=== PATIENT | female | born 1950 | race American Indian/Alaskan Native ===

== ENCOUNTER 2018-06-16 07:07 | Day surgery (SDC) | payer MEDICARE ==
[2018-06-14 09:44] VITALS: BMI 29.2
[2018-06-16] MEDS ORDERED: Propofol 10 mg/ml Inj (20 ML) ONE ×2 (08:55→09:16)
[2018-06-16] MEDS ORDERED: Etomidate 20 mg/10ml Inj IV ONE ×2 (08:56→09:10)
[2018-06-16] MEDS ORDERED: ePHEDrine 50 mg/ml Inj ONE (08:59)
[2018-06-16 10:01] VITALS: TEMP 97.9
[2018-06-16 15:05] VITALS: PULSE 68; O2SAT 98
[2018-06-16 15:13] VITALS: BP 122/61; RESP 15
== END 2018-06-16 11:34 | disposition home or self-care (01) ==
LOC: C.ENDO 07:07
PROVIDERS: ATTEND Internal Medicine Gastroenterology
DX: Z09 Encounter for follow-up examination after completed treatment for conditions other than malignant neoplasm (principal); Z86.010 Personal history of colon polyps; D12.0 Benign neoplasm of cecum; D12.4 Benign neoplasm of descending colon; K63.5 Polyp of colon; K57.90 Diverticulosis of intestine, part unspecified, without perforation or abscess without bleeding; I10 Essential (primary) hypertension; E11.9 Type 2 diabetes mellitus without complications; I25.10 Atherosclerotic heart disease of native coronary artery without angina pectoris; E78.5 Hyperlipidemia, unspecified; Z95.1 Presence of aortocoronary bypass graft; Z79.84 Long term (current) use of oral hypoglycemic drugs; Z79.82 Long term (current) use of aspirin
CPT/HCPCS: 45380; 45385; 82948; 88305; J2405; J2704